=== PATIENT | male | born 1970 | race Caucasian/White ===

== ENCOUNTER 2020-07-02 00:17 | Emergency (ER) | payer SELFPAY ==
[~2020-07-02] VITALS: Ht 180.3 cm; Wt 78.0 kg
--- NOTE | 2020-07-02 00:23 | NUR ---
PATIENT ASSISTED WITH REMOVING CLOTHING. 6-7 SOCKS REMOVED FROM EACH FOOT, 5-6 SHIRTS/JACKETS, 1 PAIR OF PANTS, 2 PAIRS OF GLOVES AND A BAG THAT WAS WRAPPED AND TIED AROUND HIS NECK.
[2020-07-02] MEDS ORDERED: METHOCARBAMOL 750 MG TABLET ONE (02:16)
[2020-07-02] MEDS ORDERED: IBUPROFEN 800 MG TABLET ONE (02:16)
[2020-07-02] MEDS ORDERED: IBUPROFEN 800 MG TABLET PO ONE (02:30)
[2020-07-02] MEDS ORDERED: METHOCARBAMOL 750 MG TABLET PO ONE (02:30)
[2020-07-02 03:21] VITALS: BP 118/68
--- NOTE | 2020-07-02 03:23 | NUR ---
Upon going to DC patient, pt not wanting to leave, getting upset and throwing things in the room. Able to calm patient down, gave patient new clean socks, attemtpted to find patient shoes, and gave warm blankets for home. As jose was getting dressed he decided to urinate on floor. Pt threw DC paper work in trash after suggesting we mail the DC instrcutions to the president. Pt given and fitted for crutches, and was able to use them safetly. Multiple attempts made to make patient comfortable and offered resources for patinet. Pt A&O, and in no distress upon DC. Instructions verbally given to jose. Pt out of dept with crutches without difficulty. Taxi voucher given.
== END 2020-07-02 03:30 | disposition home or self-care (01) ==
LOC: ED 02:51
DX: G89.11 Acute pain due to trauma (principal); M25.552 Pain in left hip; M79.605 Pain in left leg; M79.672 Pain in left foot; F17.200 Nicotine dependence, unspecified, uncomplicated
CPT/HCPCS: 99283

== ENCOUNTER 2020-07-25 20:43 | Emergency (ER) | payer SELFPAY ==
[~2020-07-25] VITALS: Ht 180.3 cm; Wt 78.0 kg
[2020-07-25 21:06] VITALS: BP 118/77
== END 2020-07-25 22:24 | disposition home or self-care (01) ==
LOC: ED 21:15
DX: L03.114 Cellulitis of left upper limb (principal); L03.032 Cellulitis of left toe; M79.89 Other specified soft tissue disorders; M79.672 Pain in left foot; F17.200 Nicotine dependence, unspecified, uncomplicated
CPT/HCPCS: 99283

== ENCOUNTER 2020-08-05 04:54 | Emergency (ER) | payer SELFPAY ==
[~2020-08-05] VITALS: Ht 180.3 cm; Wt 75.0 kg
[2020-08-05 04:55] VITALS: BP 132/86
== END 2020-08-05 05:38 | disposition home or self-care (01) ==
LOC: ED 05:27
DX: M19.032 Primary osteoarthritis, left wrist (principal); L03.114 Cellulitis of left upper limb; F17.200 Nicotine dependence, unspecified, uncomplicated
CPT/HCPCS: 99283

== ENCOUNTER 2020-08-06 01:57 | Emergency (ER) | payer SELFPAY ==
[~2020-08-06] VITALS: Ht 175.3 cm; Wt 75.0 kg
[2020-08-06 02:01] VITALS: BP 129/41
--- NOTE | 2020-08-06 02:37 | NUR ---
PT STATES HE HAS NO MEDICAL ISSUES AT THIS TIME, JUS WANTS BREAD AND SNACKS. PT GIVEN SOME SNACKS AND GIVEN D/C PAPERS.
== END 2020-08-06 02:44 | disposition home or self-care (01) ==
LOC: ED 02:36
DX: F10.10 Alcohol abuse, uncomplicated (principal); F17.210 Nicotine dependence, cigarettes, uncomplicated; Z72.9 Problem related to lifestyle, unspecified; Y90.0 Blood alcohol level of less than 20 mg/100 ml
CPT/HCPCS: 99283; 99406